=== PATIENT | female | born 1940 | race Hispanic/Latino ===

== ENCOUNTER 2018-09-20 05:07 | Observation (INO) | payer OTHER ==
[2018-09-14 12:19] LABS: BASOPHILS # (AUTO) 0.1 (0.0-0.1); BASOPHILS % 0.7 % (0.0-1.0); EOSINOPHILS # (AUTO) 0.2 (0.0-0.4); HEMATOCRIT 40.8 % (34.2-44.1); HEMOGLOBIN 13.4 g/dL (12.0-16.0); LYMPHOCYTES # (AUTO) 2.8 (1.0-3.2); LYMPHOCYTES % 34.6 % (18.0-39.1); MEAN CORPUSCULAR HEMOGLOBIN 30.7 pg (28-32); MEAN CORPUSCULAR HGB CONC 32.8 g/dL (31-35); MEAN CORPUSCULAR VOLUME 93.4 fL (81-99); MONOCYTES # (AUTO) 0.7 (0.2-0.8); MONOCYTES % 8.4 % (4.4-11.3); NEUTROPHILS # (AUTO) 4.4 (2.1-6.9); NEUTROPHILS % 54.1 % (38.7-80.0); PLATELET COUNT 247 x10e3/uL (140-360); RED BLOOD COUNT 4.37 x10e6/uL (3.6-5.1); RED CELL DISTRIBUTION WIDTH 13.1 % (11.7-14.4)
[2018-09-14 12:38] LABS: ANION GAP 14.7 mmol/L (8-16); BLOOD UREA NITROGEN 15 mg/dL (7-26); BUN/CREATININE RATIO 18 (6-25); CALCIUM 9.6 mg/dL (8.4-10.2); CARBON DIOXIDE 30 mmol/L (22-29); CHLORIDE 101 mmol/L (98-107); CREATININE, SERUM 0.83 mg/dL (0.57-1.11); EST GLOMERULAR FILTRATION RATE > 60 ML/MIN (60-); GLUCOSE 112 mg/dL (74-118); POTASSIUM 3.7 mmol/L (3.5-5.1); SODIUM 142 mmol/L (136-145)
--- NOTE | 2018-09-14 12:50 | Diagnostic Imaging Report ---
EXAMINATION: CHEST 2 VIEWS INDICATION: DCIS right breast. Preop COMPARISON: None FINDINGS: TUBES and LINES: None. LUNGS: Lungs are well inflated. Lungs are clear. There is no evidence of pneumonia or pulmonary edema. PLEURA: No pleural effusion or pneumothorax. HEART AND MEDIASTINUM: The cardiomediastinal silhouette is unremarkable. BONES AND SOFT TISSUES: No acute osseous lesion. Soft tissues are unremarkable. UPPER ABDOMEN: No free air under the diaphragm. IMPRESSION: No acute thoracic abnormality. Signed by: Dr. Fab Lopez M.D. on 09/14/2018 12:47 PM
[~2018-09-20] VITALS: Ht 162.6 cm; Wt 117.5 kg
[~2018-09-20 05:07] MED LIST: ASPIR 8181 MG PO; EFFEXOR100 MG PO; LEVOTHYROXINE50 MCG PO; LOSARTAN POTAS100 MG PO; MELOXICAM7.5 MG PO; METFORMIN HCL500 MG PO; POLYETHYLENE GL17 GM PO; PRINZIDE 20-251 EACH PO; TRAMADOL HCL50 M1 PO; TRIAMTERENE PO; Z.0.ATIVAN1 MG PO; Z.0.DICYCLOMINE HCL1 PO; Z.0.MEVACOR40 MG PO; Z.0.NAPROSYN500 MG PO; Z.0.OMEPRAZOLE20 M1 PO; Z.0.ONDANSETRON HCL4 PO
--- OUTSIDE RECORDS SUMMARY | 2018-09-20 05:24 | XMS REPORT ---
Author Author [facility] Address Unknown Phone Unavailable Care Team Providers Care Swing Type Lathe Operator Name Role Phone MEGHNA BABB Unavailable Unavailable Problems This patient has no known problems. Allergies, Adverse Reactions, Alerts This patient has no known allergies or adverse reactions. Medications This patient has no known medications. Results Test Description Test Time Test Comments Text Results Atomic Results Result Comments CHEST 2 VIEWS 2018-09-14 12:46:00 [place] [id number] Patient Name: VINCE YA MR #: [id number] : 1940 Age/Sex: 77/F Req #: [id number] Adm Physician: Ordered by: SCOTTY RAMOS MD Report #: [id number] Location: OR Room/Bed: Procedure: [id number] DX/CHEST 2 VIEWS Exam Date: Exam Time: REPORT STATUS: Signed EXAMINATION: CHEST 2 VIEWS INDICATION: DCIS right breast. Preop COMPARISON: None FINDINGS: TUBES and LINES: None. LUNGS: Lungs are well inflated. Lungs are clear. There is no evidence of pneumonia or pulmonary edema. PLEURA: No pleural effusion or pneumothorax. HEART AND MEDIASTINUM: The cardiomediastinal silhouette is unremarkable. BONES AND SOFT TISSUES: No acute osseous lesion. Soft tissues are u nremarkable. UPPER ABDOMEN: No free air under the diaphragm. IMPRESSION: No acute thoracic abnormality. Signed by: Dr. Fab Lopez M.D. on 09/14/2018 12:47 PM Dictated By: FAB LOPEZ MD, MD 46 Transcribed By: NATALIE on 09/14/181246 COPY TO: SCOTTY RAMOS MD
[2018-09-20] MEDS ORDERED: CEFAZOLIN SOD 1 GM VIAL ONE (06:21)
[2018-09-20] MEDS ORDERED: MUPIROCIN 2% OINT 22 GM TUBE ONE (06:27)
[2018-09-20] MEDS ORDERED: BACITRACIN 50,000 UNIT VIAL ONE (06:27)
[2018-09-20] MEDS ORDERED: HYDROCODONE/APAP 7.5MG-325MG 1 EA TAB PO PRN (10:15)
[2018-09-20] MEDS ORDERED: ACETAMINOPHEN 325 MG TAB PO PRN (10:15)
[2018-09-20] MEDS ORDERED: HYDROMORPHONE 1MG/1ML INJ IV PRN (10:15)
[2018-09-20] MEDS ORDERED: ONDANSETRON HCL 4 MG ORAL DISINTEGRATING TAB SL PRN (10:15)
[2018-09-20] MEDS ORDERED: HYDROMORPHONE 2MG/ML 2 MG/ML ML ONE (10:49)
[2018-09-20] MEDS ORDERED: FENTANYL CITRATE/PF 100MCG/2 ML INJ ONE ×2 (11:27→14:37)
[2018-09-20 13:09] VITALS: BP 162/75
--- NOTE | 2018-09-20 13:10 | NUR ---
received to rm aaox3 no distress noted, dsg to right breast with sebastien wrap noted,c/d/i, ivf infusing to l hand 20g no ss of infiltration noted, maldonado ot bsd with yellow urine noted, co pain 05/29 medicated with prn meds, no other co voiced call light in reach will continue ot monitor
[2018-09-20] MEDS: HYDROMORPHONE 2MG/ML 2 MG/ML ML IV PRN ×3 (13:40→23:24)
[2018-09-20] MEDS ORDERED: CEFAZOLIN SOD 1 GM/D5W 50ML 50 ML IV SCH (14:00)
[2018-09-20] MEDS: LACTATED RINGER'S 1,000 ML IV SCH ×2 (14:59→20:03)
[2018-09-20 15:29] VITALS: BP 162/75
[2018-09-20 15:42] VITALS: BP 124/58
[2018-09-20] MEDS: DOCUSATE SODIUM 100 MG CAP PO SCH (17:42)
[2018-09-20] MEDS: CEFAZOLIN SOD 1 GM VIAL IV SCH (17:42)
[2018-09-20] MEDS ORDERED: LIDOCAINE HCL 2% LOCAL INJ 5 ML SDV VIAL INJ ONE (19:27)
[2018-09-20] MEDS ORDERED: DEXAMETHASONE SOD PHOS INJ 4 MG/ML VIAL ONE (19:27)
[2018-09-20] MEDS ORDERED: ACETAMINOPHEN 1000 MG/100 ML IV ONE (19:27)
[2018-09-20] MEDS ORDERED: NEOSTIGMINE 5 MG/5ML SYR ONE (19:27)
[2018-09-20] MEDS ORDERED: PROPOFOL IV EMULSION 10 MG/ML 20 ML VIAL ONE (19:27)
[2018-09-20] MEDS ORDERED: SEVOFLURANE INHAL SOLN 250 ML PEN BTL ONE (19:27)
[2018-09-20] MEDS ORDERED: EPHEDRINE SULFATE INJ 50 MG/10 ML SYR ONE (19:27)
[2018-09-20] MEDS ORDERED: ONDANSETRON HCL INJ 2 MG/ML VIAL ONE (19:27)
[2018-09-20] MEDS ORDERED: GLYCOPYRROLATE INJ 1MG/ 5 ML SYR ONE (19:27)
[2018-09-20] MEDS ORDERED: ROCURONIUM BROMIDE 10 MG/ML 5ML VIAL ONE (19:27)
[2018-09-20] MEDS ORDERED: KETOROLAC TROMETHAMINE 30 MG/ML VIAL ONE (19:27)
[2018-09-20 20:00] VITALS: BP 129/60
[2018-09-20 23:36] VITALS: BP 129/60
[2018-09-21] VITALS: BP 110/54
[2018-09-21] MEDS: CEFAZOLIN SOD 1 GM VIAL IV SCH ×2 (00:19→08:53)
[2018-09-21] MEDS: LACTATED RINGER'S 1,000 ML IV SCH (00:40)
[2018-09-21] MEDS: HYDROMORPHONE 2MG/ML 2 MG/ML ML IV PRN ×3 (01:57→10:44)
[2018-09-21 04:00] VITALS: BP 125/58
--- NOTE | 2018-09-21 06:50 | NUR ---
Quinonez catheter removed w/ tip intact. Patient tolerated well.
--- NOTE | 2018-09-21 08:20 | NUR ---
Patient alert and responsive, rounds completed and patient in pain and medicated as per orders, assisted OOB to chair in the room, dressing in place and rounds by surgeon and will change dressing this morning. Orders to d/c norco and start APAP #3 PRN. Will monitor
[2018-09-21] MEDS: ACETAMINOPHEN/CODEINE 300MG - 30MG TAB PO PRN ×2 (08:50→13:51)
[2018-09-21] MEDS: DOCUSATE SODIUM 100 MG CAP PO SCH (08:53)
[2018-09-21 08:59] VITALS: BP 140/67
[2018-09-21] MEDS ORDERED: ENOXAPARIN SOD INJ 40 MG/0.4 ML SYR SC SCH (09:00)
--- NOTE | 2018-09-21 09:25 | Operative Report ---
DATE OF PROCEDURE: September 20, 2018 PREOPERATIVE DIAGNOSIS: Right breast cancer. POSTOPERATIVE DIAGNOSIS: Right breast cancer. PROCEDURES 1. Right breast reconstruction with immediate insertion of breast prosthesis. 2. Placement of allograft for soft tissue reinforcement of trunk. ANESTHESIA: General. HISTORY: The patient is a 77-year-old female with biopsy-proven cancer of the right breast. The patient is going to undergo a right-sided mastectomy by the general surgery service with immediate reconstruction. The risks, benefits and alternatives were discussed with the patient and the family. They are prepared to undergo the procedures outlined. They have signed the [place] [employer] consent forms. DETAILS OF PROCEDURE: The patient was marked preoperatively in the holding area. She was taken to the OR by the general surgery team. After the completion of the mastectomy, the plastic surgical team came in. The patient was under general anesthesia. The lap pads were removed from the mastectomy site and the wound was examined. There was no active bleeding. The entire breast had been removed. The skin flaps were noted to be quite thinned and the edges were somewhat dusky. The procedure was begun by first performing a time out. Then utilizing the electrocautery to elevate the pectoralis major muscle off of the chest wall. It was released from the inframammary fold leaving a cuff of tissue to suture the allograft to. It was released along the medial border of the sternum as well. Once the muscle had been completely elevated, hemostasis was achieved with electrocautery. A 15 x 15 cm piece of allograft dermis Surgimed semi-oval along one side was prepared per photographic equipment technician's specifications. At this point, the curvilinear edge of the allograft was sutured to the inframammary fold beginning at the medial aspect of the border of the medial sternal attachment. Two-0 PDS was used in an interrupted horizontal mattress fashion to recreate the entire inframammary fold. At this point, the allograft was sutured to the border of the sternal attachment of the pectoralis using the 2-0 PDS in a similar fashion. At this point with the inframammary fold reconstructed and the pocket created, implants sizers were then used to a size the patient for an appropriate implant. Sizers of varying sizes were used starting from 575 mL. It was noted that a 700 mL implant recreated the breast mound satisfactorily, and fit under the allograft and the pectoralis major muscle. At this point, the sizer was removed, and the cephalad border of the allograft was then sutured to the cut portion of the pectoralis major muscle. The implant was then prepared per photographic equipment technician's specification. The lot number and serial number are located in the patient's chart. The wound was irrigated with antibiotic containing solution and then a dilute Betadine solution. The implant was then placed in the retropectoral pocket and placed as medial and inferior as possible. In order to prevent lateral migration of the implant, the serratus anterior was incised using electrocautery anteriorly off the chest wall and dissected free so that the allograft could be sutured to the serratus anterior edge and prevent lateral migration. This was done with 2-0 PDS in an interrupted horizontal mattress fashion as well. At this point, two 15-[place] Tirso drains were placed percutaneously and sutured to the skin with 3-0 nylon. The redundant skin and subcutaneous tissue was then marked out and judiciously excised. The wound edge was made hemostatic using electrocautery. The skin was closed with 3-0 Monocryl in an interrupted buried fashion to approximate the deep dermis and a 4-0 Monocryl running subcuticular stitch. Steri-Strips were applied to the incision. Drains were then placed on suction. Sterile dressings were applied. The patient tolerated the procedure well. The estimated blood loss of this portion of the procedure was between 100 and 125 mL. She was then returned to the recovery room in satisfactory condition and admitted for overnight observation, care and treatment. Job#: [id number] CALVIN
[2018-09-21 10:40] VITALS: BP 140/67
[2018-09-21 11:32] VITALS: BP 138/62
--- NOTE | 2018-09-21 11:39 | NUR ---
Patient OOB and ambulated to bathroom and voided x2 this morning post removal of Quinonez. Pains well managed and will monitor
--- NOTE | 2018-09-21 11:56 | NUR ---
Dressing changed at this time by surgeon to breast reconstruction site. Tolerated well and pre-medicated prior to dressing changed. Patient and daughter educated on emptying SERAFIN drains and care of SERAFIN drains. Verbalized understanding.
[2018-09-21] MEDS ORDERED: KEFLEX500 MG PO (12:05)
[2018-09-21] MEDS ORDERED: TYLENOL WITH C1 EACH PO (12:05)
--- NOTE | 2018-09-21 12:56 | NUR ---
CM MET WITH PT, AND DAUGHTER PT LIVES WITH HER HER GROWN DTR WILL BE STAYING WITH HER AND HER FATHER UPON DISCHARGE TO ASSIST WITH HER NEEDS SHANEL SIGNED AND ON CHART COPY TO PT GAVE PT MY CARD FOR QUESTIONS/CONCERNS
--- NOTE | 2018-12-04 13:49 | Operative Report ---
DATE OF PROCEDURE: September 20, 2018 PREOPERATIVE DIAGNOSIS: Ductal carcinoma in situ of the right breast. POSTOPERATIVE DIAGNOSIS: Ductal carcinoma in situ of the right breast. OPERATION PERFORMED: Right total mastectomy. ANESTHESIA: General. COMPLICATIONS: None. ESTIMATED BLOOD LOSS: Minimal. DESCRIPTION OF PROCEDURE: With the patient lying in bed in the supine position under good general anesthesia, the chest was prepped and draped in the usual manner. An elliptical incision was made to include the nipple areolar complex, and flaps were then developed all the way around. The borders of the flap were medially, the sternum superiorly, the clavicle inferiorly, the rectus fascia, and laterally the latissimus dorsi. The breast tissue was then taken off of the pectoralis major muscle and perfect hemostasis was ascertained. The specimen was properly oriented and sent for pathological examination. The entire breast tissue was removed without leaving any part behind. After this was done, the whole area was irrigated. Hemostasis was ascertained. Then the case was turned over to Dr. Wright for reconstruction. Patient tolerated our part of the procedure well. Job#: [id number] CALVIN
== END 2018-09-21 14:19 | disposition home or self-care (01) ==
LOC: OR 05:07 → PACU V 10:05 → MED/SURG 13:00
PROVIDERS: ADMIT Plastic Surgery; ATTEND Plastic Surgery
DX: D05.11 Intraductal carcinoma in situ of right breast (principal); Z01.810 Encounter for preprocedural cardiovascular examination; Z01.812 Encounter for preprocedural laboratory examination; Z01.811 Encounter for preprocedural respiratory examination; Z85.3 Personal history of malignant neoplasm of breast; E78.5 Hyperlipidemia, unspecified; E11.9 Type 2 diabetes mellitus without complications; I10 Essential (primary) hypertension; E03.9 Hypothyroidism, unspecified; Z79.84 Long term (current) use of oral hypoglycemic drugs
CPT/HCPCS: 15777; 19307; 19340; 36415 ×3; 71046; 80048; 82948 ×2; 85025; 88307; 93005; C9358; G0378 ×2; J0131; J0690 ×2; J1100; J1170 ×2; J1650; J1885; J2001; J2405; J2704; J3490; J7120 ×2; L8600

== ENCOUNTER → 2018-12-27 | Day surgery (SDC) | payer MEDICARE, OTHER ==
[2018-12-26 13:36] LABS: BASOPHILS # (AUTO) 0.1 (0.0-0.1); BASOPHILS % 0.7 % (0.0-1.0); EOSINOPHILS # (AUTO) 0.2 (0.0-0.4); EOSINOPHILS % 2.5 % (0.0-6.0); HEMATOCRIT 40.7 % (34.2-44.1); HEMOGLOBIN 13.2 g/dL (12.0-16.0); LYMPHOCYTES # (AUTO) 2.8 (1.0-3.2); LYMPHOCYTES % 36.8 % (18.0-39.1); MEAN CORPUSCULAR HEMOGLOBIN 29.9 pg (28-32); MEAN CORPUSCULAR HGB CONC 32.4 g/dL (31-35); MEAN CORPUSCULAR VOLUME 92.3 fL (81-99); MONOCYTES # (AUTO) 0.8 (0.2-0.8); MONOCYTES % 9.8 % (4.4-11.3); NEUTROPHILS # (AUTO) 3.9 (2.1-6.9); NEUTROPHILS % 49.9 % (38.7-80.0); PLATELET COUNT 277 x10e3/uL (140-360); RED BLOOD COUNT 4.41 x10e6/uL (3.6-5.1); RED CELL DISTRIBUTION WIDTH 13.7 % (11.7-14.4)
[2018-12-26 13:50] LABS: ANION GAP 13.7 mmol/L (8-16); BLOOD UREA NITROGEN 19 mg/dL (7-26); BUN/CREATININE RATIO 23 (6-25); CALCIUM 9.5 mg/dL (8.4-10.2); CARBON DIOXIDE 28 mmol/L (22-29); CHLORIDE 101 mmol/L (98-107); CREATININE, SERUM 0.82 mg/dL (0.57-1.11); EST GLOMERULAR FILTRATION RATE > 60 ML/MIN (60-); GLUCOSE 95 mg/dL (74-118); POTASSIUM 3.7 mmol/L (3.5-5.1); SODIUM 139 mmol/L (136-145)
[~2018-12-27] MED LIST changes: +BACITRACIN 50,000 UNIT VIAL ONE; +CEFAZOLIN SOD 1 GM/NS 50ML 50 ML IV ONE; +DESFLURANE 240 ML BTL INH ONE; +DEXAMETHASONE SOD PHOS INJ 4 MG/ML VIAL ONE; +EPHEDRINE SULFATE INJ 50 MG/10 ML SYR ONE; +FENTANYL CITRATE/PF 100MCG/2 ML INJ ONE; +GLYCOPYRROLATE INJ 1MG/ 5 ML SYR ONE; +HYDROMORPHONE 2MG/ML 2 MG/ML ML ONE; +KEFLEX500 MG PO; +LIDOCAINE HCL 2% LOCAL INJ 5 ML SDV VIAL INJ ONE; +MIDAZOLAM HCL 2 MG/2 ML VIAL ONE; +MORPHINE SULFATE INJ 4 MG/ML INJ 1ML ONE; +NEOSTIGMINE 5 MG/5ML SYR ONE; +ONDANSETRON HCL INJ 2MG/ML 2ML 2 MG/ML VIAL ONE; +PROPOFOL IV EMULSION 10 MG/ML 20 ML VIAL ONE; +ROCURONIUM BROMIDE 10 MG/ML 5ML VIAL ONE; +TYLENOL WITH C1 EACH PO
--- NOTE | 2018-12-27 14:53 | Operative Report ---
DATE OF PROCEDURE: December 27, 2018 PREOPERATIVE DIAGNOSES: 1. Deformity of right breast reconstruction. 2. Asymmetry of disproportion of reconstructed breast. POSTOPERATIVE DIAGNOSES: 1. Deformity of right breast reconstruction. 1. Asymmetry of disproportion of reconstructed breast. PROCEDURES PERFORMED: 1. Revision of right breast reconstruction. 2. Left breast reduction mammoplasty. ANESTHESIA: General. HISTORY: The patient is a 78-year-old female who underwent mastectomy with 1-stage reconstruction of the right side. She is now several months postoperative and does not like the appearance of the medial aspect of the right breast. Also, she requires a reduction mammoplasty on the left side to achieve optimal symmetry. The risks, benefits and alternatives of treatment were discussed with the patient. She has signed the [place] [employer] consent form for the procedures. DETAILS OF PROCEDURE: Patient was marked preoperatively in the holding area in the upright position. She was brought to the operating theater, and after the induction of adequate general anesthesia, she was prepped and draped in a supine position and a time out was performed. The procedure was begun on the right side first where the medial aspect of the reconstructed breast was marked out. The incision was made through the skin and subcutaneous tissues and bleeding controlled using the electrocautery. The incision was deepened through the subcutaneous tissue and then down to the level of the prepectoral fascial region. The entire skin subcutaneous tissue were then removed. There was a significant amount of contraction of the interface between the allograft and the pectoralis major muscle in this area. This area was then incised, which allowed the implant to then be moved more medially, creating more medial fullness. At this point, the rent was then repaired using 2-0 PDS in an interrupted figure-of-8 fashion. The wound was irrigated with bacteriostatic saline, and then the tissues were closed in layers utilizing 3-0 Monocryl in an interrupted buried fashion followed by 4-0 Monocryl running subcuticular stitch. The left breast reduction mammoplasty was performed in the standard inferior pedicle García pattern technique. The patient had been previously marked. The nipple areolar complex was circumscribed with a 42 mm cookie cutter. A 12 cm wide pedicle inferiorly based was marked out and then was de-epithelialized using a scalpel. At this point, the medial and the lateral borders of the pedicle were developed through the subcutaneous and breast tissue with the electrocautery down to the level of the prepectoral fascia. Once the medial and the lateral borders had been developed, the apex of the pedicle was developed, taking care to leave approximately 2 to 3 cm of tissue above the nipple areolar complex to maintain vascularity. Once again this curvilinear portion of the pedicle was taken down through the subcutaneous and breast tissue to the level of the prepectoral fascia. At this point, the medial, central and lateral upper part of the chest wall was undermined in the prepectoral plane using the electrocautery in order to allow adequate redraping of the tissues without tension. Once this undermining had been achieved, the wound was copiously irrigated with bacteriostatic saline and hemostasis attended to with electrocautery. At this juncture, the medial and the lateral triangles were then incised through the skin and subcutaneous tissue. The bleeding was controlled using the electrocautery. A full thickness excision of the medial and lateral triangles was performed and the skin edges and wound edges made hemostatic using electrocautery. At this point, the upper flaps were held vertically, and they were judiciously thinned of subcutaneous tissue using a curved Fuentes scissors. The wound was copiously irrigated once again, and hemostasis was made absolute using the electrocautery. At this point, the keyhole portion of the pattern was incised through the skin and subcutaneous tissue, bleeding controlled using the electrocautery. The incision was deepened through the subcutaneous and breast tissue, and the keyhole pattern was removed. At this point, the pedicle was inspected and there was noted to be good vascularity to the nipple areolar complexes. The upper flaps were then brought together temporarily and held in place with surgical clips. The patient was then sat up and assessed for the adequacy of the reduction and to see whether it matched the reconstructed side, and it was noted that the symmetry was very satisfactory. At this point, the patient was made supine. The surgical clips were removed, and the wound was irrigated once again with bacteriostatic saline and checked for hemostasis, which was made absolute. At this juncture, the pedicle was noted to lie nicely underneath the flaps without any twisting or kinking, and the upper flaps were then brought together and sutured in layers utilizing 3-0 Monocryl in an interrupted buried fashion followed by a 4-0 Monocryl running subcuticular stitch. Steri-Strips were applied to all the incisions. Sterile dressings were then applied, and then the patient was returned to the recovery room in satisfactory condition and discharged with a postoperative instruction sheet as well as a followup appointment. Job#: [id number] JOCELYNE
[2018-12-27 14:55] VITALS: BP 119/68
== END | disposition home or self-care (01) ==
LOC: OR 06:25
PROVIDERS: ATTEND Plastic Surgery
DX: N65.0 Deformity of reconstructed breast (principal); N65.1 Disproportion of reconstructed breast; G47.33 Obstructive sleep apnea (adult) (pediatric); E11.9 Type 2 diabetes mellitus without complications; I10 Essential (primary) hypertension; M54.9 Dorsalgia, unspecified; E03.9 Hypothyroidism, unspecified; F41.9 Anxiety disorder, unspecified; Z88.8 Allergy status to other drugs, medicaments and biological substances; Z01.810 Encounter for preprocedural cardiovascular examination; Z01.812 Encounter for preprocedural laboratory examination; Z79.84 Long term (current) use of oral hypoglycemic drugs
CPT/HCPCS: 19318; 19380; 36415 ×2; 80048; 82948; 85025; 88305; 93005; J0690; J1100; J1170; J2001; J2250; J2270; J2405; J2704; J3490

== ENCOUNTER → 2020-12-03 | Day surgery (SDC) | payer MEDICARE ==
[2020-11-30 13:20] LABS: BASOPHILS # (AUTO) 0.1 (0.0-0.1); BASOPHILS % 0.9 % (0.0-1.0); EOSINOPHILS # (AUTO) 0.2 (0.0-0.4); EOSINOPHILS % 1.9 % (0.0-6.0); HEMATOCRIT 37.5 % (34.2-44.1); HEMOGLOBIN 11.7 g/dL (12.0-16.0); LYMPHOCYTES # (AUTO) 3.1 (1.0-3.2); LYMPHOCYTES % 39.6 % (18.0-39.1); MEAN CORPUSCULAR HGB CONC 31.2 g/dL (31-35); MEAN CORPUSCULAR VOLUME 96.2 fL (81-99); MONOCYTES # (AUTO) 0.7 (0.2-0.8); MONOCYTES % 8.9 % (4.4-11.3); NEUTROPHILS # (AUTO) 3.7 (2.1-6.9); NEUTROPHILS % 48.6 % (38.7-80.0); PLATELET COUNT 251 x10e3/uL (140-360); RED CELL DISTRIBUTION WIDTH 13.4 % (11.7-14.4)
[~2020-12-03] MED LIST changes: -BACITRACIN 50,000 UNIT VIAL ONE; -CEFAZOLIN SOD 1 GM/NS 50ML 50 ML IV ONE; -DESFLURANE 240 ML BTL INH ONE; -DEXAMETHASONE SOD PHOS INJ 4 MG/ML VIAL ONE; +ELIQUIS5 MG PO; -EPHEDRINE SULFATE INJ 50 MG/10 ML SYR ONE; -FENTANYL CITRATE/PF 100MCG/2 ML INJ ONE; -GLYCOPYRROLATE INJ 1MG/ 5 ML SYR ONE; +HYDROCHLOROTHIA25 MG PO; -HYDROMORPHONE 2MG/ML 2 MG/ML ML ONE; +METOPROLOL SUCC25 MG PO; -MIDAZOLAM HCL 2 MG/2 ML VIAL ONE; -MORPHINE SULFATE INJ 4 MG/ML INJ 1ML ONE; -NEOSTIGMINE 5 MG/5ML SYR ONE; -ONDANSETRON HCL INJ 2MG/ML 2ML 2 MG/ML VIAL ONE; +PANTOPRAZOLE SO40 MG PO; +PLAVIX75 MG PO; -ROCURONIUM BROMIDE 10 MG/ML 5ML VIAL ONE; +SERTRALINE HCL100 MG PO; +TRIAMTERENE-HCTZ1 EA PO
[2020-12-03 08:13] VITALS: BP 121/65
== END | disposition home or self-care (01) ==
LOC: OR 05:54
PROVIDERS: ATTEND Internal Medicine Gastroenterology
DX: K29.50 Unspecified chronic gastritis without bleeding (principal); G47.33 Obstructive sleep apnea (adult) (pediatric); E11.9 Type 2 diabetes mellitus without complications; E03.9 Hypothyroidism, unspecified; I10 Essential (primary) hypertension; E78.00 Pure hypercholesterolemia, unspecified; M54.2 Cervicalgia; M54.9 Dorsalgia, unspecified; K75.9 Inflammatory liver disease, unspecified; Z88.8 Allergy status to other drugs, medicaments and biological substances; Z01.810 Encounter for preprocedural cardiovascular examination; Z01.812 Encounter for preprocedural laboratory examination; Z20.822 Contact with and (suspected) exposure to COVID-19; Z79.02 Long term (current) use of antithrombotics/antiplatelets; Z79.84 Long term (current) use of oral hypoglycemic drugs; Z86.73 Personal history of transient ischemic attack (TIA), and cerebral infarction without residual deficits
CPT/HCPCS: 36415 ×2; 43239; 82948; 85025; 93005; J2001; J2704; U0002

== ENCOUNTER → 2021-06-17 | Day surgery (SDC) | payer MEDICARE ==
[2021-06-08 13:25] LABS: BASOPHILS # (AUTO) 0.1 (0.0-0.1); BASOPHILS % 0.9 % (0.0-1.0); EOSINOPHILS # (AUTO) 0.1 (0.0-0.4); EOSINOPHILS % 2.2 % (0.0-6.0); HEMOGLOBIN 11.3 g/dL (12.0-16.0); LYMPHOCYTES # (AUTO) 2.6 (1.0-3.2); LYMPHOCYTES % 39.7 % (18.0-39.1); MEAN CORPUSCULAR HEMOGLOBIN 29.7 pg (28-32); MEAN CORPUSCULAR HGB CONC 31.4 g/dL (31-35); MEAN CORPUSCULAR VOLUME 94.7 fL (81-99); MONOCYTES # (AUTO) 0.6 (0.2-0.8); PLATELET COUNT 217 x10e3/uL (140-360); RED CELL DISTRIBUTION WIDTH 14.4 % (11.7-14.4)
[~2021-06-17] MED LIST changes: -LIDOCAINE HCL 2% LOCAL INJ 5 ML SDV VIAL INJ ONE; -PROPOFOL IV EMULSION 10 MG/ML 20 ML VIAL ONE
[2021-06-17 09:40] VITALS: BP 163/82
== END | disposition home or self-care (01) ==
LOC: OR 06:39
PROVIDERS: ATTEND Internal Medicine Gastroenterology
DX: Z86.010 Personal history of colon polyps (principal); D12.3 Benign neoplasm of transverse colon; K64.8 Other hemorrhoids; E11.9 Type 2 diabetes mellitus without complications; E66.9 Obesity, unspecified; G47.33 Obstructive sleep apnea (adult) (pediatric); I11.0 Hypertensive heart disease with heart failure; I50.9 Heart failure, unspecified; Z68.39 Body mass index [BMI] 39.0-39.9, adult; Z88.8 Allergy status to other drugs, medicaments and biological substances; Z86.73 Personal history of transient ischemic attack (TIA), and cerebral infarction without residual deficits; Z01.810 Encounter for preprocedural cardiovascular examination; Z01.812 Encounter for preprocedural laboratory examination; Z20.822 Contact with and (suspected) exposure to COVID-19; Z85.3 Personal history of malignant neoplasm of breast
CPT/HCPCS: 36415 ×2; 45385; 82948; 85025; 93005; U0002 ×2; 45378